=== PATIENT | female | born 1985 | race Asian ===

== ENCOUNTER 2020-04-29 04:49 | Emergency (ER) | payer OTHER ==
[~2020-04-29] VITALS: Ht 167.6 cm; Wt 55.5 kg
[2020-04-29 04:58] VITALS: Ht 167.6 cm; Wt 55.5 kg
[2020-04-29 06:44] VITALS: BP 120/55
== END 2020-04-29 06:44 | disposition home or self-care (01) ==
LOC: ED 04:49
DX: R04.0 Epistaxis (principal)

== ENCOUNTER 2020-05-02 18:46 | Emergency (ER) | payer OTHER ==
[~2020-05-02] VITALS: Ht 167.6 cm; Wt 54.0 kg
[2020-05-02 19:02] VITALS: Ht 167.6 cm; Wt 54.0 kg
[2020-05-02 21:29] VITALS: BP 110/52
== END 2020-05-02 21:29 | disposition home or self-care (01) ==
LOC: ED 18:46
DX: R04.0 Epistaxis (principal)